=== PATIENT | female | born 2000 | race African-American/Black ===

== ENCOUNTER 2019-12-10 11:43 | Observation (INO) | payer OTHER, SELFPAY ==
--- NOTE | 2019-12-10 11:41 | PC.NURSE ---
pt to OB per policy
[2019-12-10 12:16] VITALS: BP 114/62; PULSE 92
[2019-12-10 12:30] LABS: Add Urine Microscopic? YES; Appearance Urine Cloudy (Clear); Bilirubin Urine 1+ (Negative); Blood Urine 1+ (Negative); Color Urine Amber (Yellow); Glucose Urine UA Negative (Negative); Ketones Urine Trace mg/dL (Negative); Leukocyte Esterase Ur 3+ LEU/UL (NEGATIVE); Mucus Urine Heavy /lpf; Nitrate Urine Negative (Negative); Protein Urine 1+ mg/dL (Negative); Squamous Epithelial Cell Urine Many /hpf (Few); WBC Urine 31-50 /hpf (0-3)
[2019-12-10 12:31] VITALS: BP 109/62; PULSE 90
[2019-12-10 12:37] LABS: Specific Grav Ur 1.031 (1.001-1.035)
[2019-12-10 12:46] VITALS: BP 113/67; PULSE 86
[2019-12-10 13:01] VITALS: BP 113/64; PULSE 81
--- NOTE | 2019-12-10 13:24 | OBADM ---
This patient, Zack Ennis, admitted to the OB room [facility] for observation. Patient/family oriented to hospital policies and general routines including ID bracelet, bed and alarms, visiting hours, pain management, procedures, bathroom and other care routines, personal items, smoking policy, room service/diet, and visiting hours. Patient/Family are encouraged to report perceived risks to care and to ask questions if they do not understand what they are told or what they should do.
--- NOTE | 2019-12-12 13:26 | PM.OBTRLD ---
OB - Triage/Final Diagnosis Visit Information Reason for evaluation: other (dysuria) Evaluation Laboratory results: Laboratory Tests 12/10/19 12:19 Urine Color Jesusita Urine Appearance Cloudy H Urine pH 6.0 Ur Specific [place] 1.031 Urine Protein 1+ H Urine Glucose (UA) Negative Urine Ketones Trace Ur Blood (Man) 1+ H Urine Nitrate Negative Urine Bilirubin 1+ H Urine Urobilinogen 4.0 H Ur Leukocyte Esterase 3+ H Urine RBC 6-10 H Urine WBC 31-50 H Ur Squamous Epith Cells Many H Urine Mucus Heavy H
== END 2019-12-10 13:06 | disposition home or self-care (01) ==
PROVIDERS: Admitting Provider Obstetrics & Gynecology; Visit Provider Obstetrics & Gynecology
DX: O99.89 Other specified diseases and conditions complicating pregnancy, childbirth and the puerperium (principal); R30.0 Dysuria; Z3A.22 22 weeks gestation of pregnancy
CPT/HCPCS: 81001; 87086; 87088; G0378; G0379

== ENCOUNTER 2019-12-27 08:44 | Emergency (ER) | payer OTHER, SELFPAY ==
[2019-12-27 08:50] VITALS: BP 146/97; PULSE 90; RESP 16; TEMP 36.6; O2SAT 100
--- NOTE | 2019-12-27 10:23 | ED.EYEPROB ---
HPI - Eye Problem General Chief complaint: Eye Problems Stated complaint: eye infection Time Seen by Provider: 12/27/19 09:00 Source: patient Mode of arrival: ambulatory Limitations: no limitations History of Present Illness HPI Narrative: Patient is a 19-year-old female who presents to emergency department for evaluation of right eye irritation patient notes last night she began to have irritation of the right eye removed her contact notes clear discharge with mild irritation with some light sensitivity denies any URI symptoms injury or trauma has not taken anything for her symptoms nor has she been seen for this complaint on arrival to emergency department is in the room resting comfortably afebrile nontoxic appearing no distress patient is currently denies any abdominal or pelvic complaints Related Data Allergies Allergy/AdvReac Type Severity Reaction Status Date / Time No Known Allergies Allergy Mild Verified 12/27/19 08:55 Review of Systems Review of Systems: Narrative: CONSTITUTIONAL: Denies fever, chills, or sweats. ENT: Denies rhinorrhea, congestion, sore throat, or otalgia. RESPIRATORY: Denies cough or dyspnea. GASTROINTESTINAL: Denies abdominal pain, nausea, vomiting SKIN: Denies rash or itching. MUSCULOSKELETAL: Denies joint pain, or myalgia. NEUROLOGIC: Denies headache Exam Narrative: Exam Narrative: GENERAL: Well-appearing, well-nourished, and in no acute distress. HEAD: Normocephalic, atraumatic. EYES: PERRLA and EOMI. patient with conjunctival injection negative fluorescein uptake. No foreign bodies noted ENT: Nares clear, no rhinorrhea or epistaxis. Mucous membranes moist. Oropharynx without tonsillar hypertrophy exudate or other lesions. NECK: Supple. No adenopathy or masses CHEST: Clear to auscultation. No respiratory distress. No wheezes rales or rhonchi HEART: Regular rate and rhythm. No murmur heard. EXTREMITIES: Normal range of motion. No edema. SKIN: Warm, dry, no rash. NEURO: No focal deficits. Alert and oriented x3. PSYCH: Normal mood and affect. Course Course Emergency Course: Patient in the room in no distress aware of case findings treatment plan and diagnosis agreeing to follow-up as directed or to return if symptoms worsen or concerns Vital Signs Vital signs: Vital Signs Temperature 97.8 F 12/27/19 08:50 Pulse Rate 90 12/27/19 08:50 Respiratory Rate 16 12/27/19 08:50 Blood Pressure 146/97 H 12/27/19 08:50 Pulse Oximetry 100 12/27/19 08:50 Temperature 97.8 F 12/27/19 08:50 Pulse Rate 90 12/27/19 08:50 Respiratory Rate 16 12/27/19 08:50 Blood Pressure 146/97 H 12/27/19 08:50 Pulse Oximetry 100 12/27/19 08:50 MDM - Eye Problem MDM Narrative Medical decision making narrative: Patient agreeing to follow-up with ophthalmology as directed and also provided with reasons to return Discharge Plan Discharge Clinical Impression: Conjunctivitis Patient Disposition: Home, Self-Care Condition: Stable Instructions: Antibiotic Form, Conjunctivitis (ED) Additional Instructions: Follow up with your primary care doctor in 5-7 days for re-evaluation. Go to ER for worsening pain, vision changes, nausea/vomiting, fever/chills, weakness, chest pain, shortness of breath, numbness/tingling, slurred speech, difficulty walking, change in mental status etc. or any other concerns. Follow-up with community fundraiser today to set up for reevaluation in 3 days Take any prescribed medications as directed. Use [id number] preservative-free tears every 2 hours for symptom relief Follow-up/Referrals: UNKNOWN,DOCTOR [Primary Care Provider] - Joyce Wynn [Outside] Joyce Ricks [Outside]
[2019-12-27] MEDS: TETRACAINE HCL 0.5% OPHTH SOLN 4 ML BTL 1 DROP EACH EYE (10:30)
[2019-12-27] MEDS: FLUORESCEIN SOD 1 MG/STRIP EACH EYE (10:30)
[2019-12-27] MEDS: DACRIOSE EYE IRRIGATION 118 ML BOTTLE 50 ML EACH EYE (10:30)
[2019-12-27 11:25] VITALS: BP 127/82; PULSE 68; RESP 16; O2SAT 99
== END 2019-12-27 11:26 | disposition home or self-care (01) ==
PROVIDERS: Emergency Provider Emergency Medicine
DX: H10.9 Unspecified conjunctivitis (principal)
CPT/HCPCS: 99283; A9270

== ENCOUNTER 2020-01-19 19:48 | Observation (INO) | payer OTHER, SELFPAY ==
[2020-01-19 20:05] VITALS: BP 131/84; PULSE 96
--- NOTE | 2020-01-21 20:22 | PM.OBTRLD ---
OB - Triage/Final Diagnosis Visit Information Reason for evaluation: threatened labor
== END 2020-01-19 20:45 | disposition home or self-care (01) ==
PROVIDERS: Admitting Provider Obstetrics & Gynecology; PCP Internal Medicine; Visit Provider Obstetrics & Gynecology
DX: O47.03 False labor before 37 completed weeks of gestation, third trimester (principal); Z3A.28 28 weeks gestation of pregnancy
CPT/HCPCS: G0378; G0379

== ENCOUNTER 2020-06-10 18:45 | Emergency (ER) | payer OTHER, SELFPAY ==
[2020-06-10 18:54] VITALS: BP 142/91; PULSE 112; RESP 18; TEMP 39.4; O2SAT 100
--- NOTE | 2020-06-10 19:35 | ED.FEVER ---
HPI - Fever General Chief Complaint: Fever Stated Complaint: fever, sore throat Time Seen by Provider: 06/10/20 19:10 Source: patient Mode of arrival: ambulatory Limitations: no limitations History of Present Illness HPI Narrative: This patient is 19 year old female who presents for evaluation of fever and sore throat. She states she woke from her nap today with a sore throat. She states it feels like she has strep throat again. Her last diagnosis of strep throat was 1 year ago. She denies any other symptoms . She denies cough, sob, nausea, vomiting, diarrhea or dizziness. She did not take any medication for her fever or pain . She denies sick contacts. MD elicited complaint: fever Related Data Home Medications Medication Instructions Recorded Confirmed ferrous sulfate 324 mg PO BID 06/10/20 labetalol 06/10/20 labetalol 06/10/20 Allergies Allergy/AdvReac Type Severity Reaction Status Date / Time No Known Allergies Allergy Mild Verified 06/10/20 19:11 Review of Systems Review of Systems: All systems reviewed & are unremarkable except as noted in HPI and below Constitutional: Constitutional: Denies fatigue and Reports fever(s) ENT: Denies nasal congestion and Reports sore throat Cardiovascular: Cardiovascular: Denies chest pain Respiratory: Respiratory: Denies cough and Denies dyspnea Gastrointestinal: Gastrointestinal: Denies abdominal pain, Denies diarrhea, Denies nausea and Denies vomiting Neurologic: Denies dizziness and Denies weakness PMFSH Past Medical History Medical History (Updated 06/11/20 @ 00:00 by Background Daemon) Anemia Hypertension Surgical History Surgical History (Updated 06/10/20 @ 19:36 by Sophia Quispe MD) History of ankle surgery Social History Social History (Updated 06/10/20 @ 19:36 by Sophia Quispe MD) Smoking status: Never smoker Gender identity (if verbalized by the patient): Female Exam Narrative: Exam Narrative: GENERAL: Well-appearing, well-nourished, and in no acute distress.obese HEAD: Normocephalic, atraumatic EYES: PERRLA and EOMI, conjunctiva clear without discharge EARS: TM's clear bilaterally without erythema or dullness NOSE: Nares clear, no rhinorrhea or epistaxis NECK: Supple, without lymphadenopathy or mass RESPIRATORY: No respiratory distress, Airway patent, Respirations non-labored, Clear to auscultation without rales, rhonchi or wheeze HEART: Regular rate and rhythm. No murmur heard. Normal peripheral pulses. ABDOMEN: Soft, nontender, nondistended, normal active bowel sounds. No masses. No rebound or guarding, No organomegaly. EXTREMITIES: No edema, normal strength with full range of motion. SKIN: Warm, dry, normal color without rash NEURO: Alert and oriented x3. CN 2-12 grossly intact. No focal deficits. PSYCH: Normal mood and affect. HENMT: Throat: uvula midline and posterior oropharynx abnormal erythema Neck: Neck: no lymphadenopathy Course Reevaluation(s) Reevaluation #1: Patient was found to have strep pharyngitis. She opted for Bicillin treatment. Date: 06/10/20 Time: 20:50 Vital Signs Vital signs: Vital Signs Temperature 102.9 F H 06/10/20 18:54 Pulse Rate 112 H 06/10/20 18:54 Respiratory Rate 18 06/10/20 18:54 Blood Pressure 142/91 H 06/10/20 18:54 Pulse Oximetry 100 06/10/20 18:54 Temperature 97.5 F L 06/10/20 21:15 Pulse Rate 101 H 06/10/20 21:15 Respiratory Rate 22 H 06/10/20 21:15 Blood Pressure 144/87 H 06/10/20 21:15 Pulse Oximetry 101 H 06/10/20 21:15 MDM - Fever Lab Data Labs: Lab Results 06/10/20 Range/Units 19:45 SARS-CoV-2 RNA (RT-PCR) Pending Strep Screen Positive Group A Strep *(Reference Range: Negative)* Discharge Plan Discharge Clinical Impression: Acute streptococcal pharyngitis Patient Disposition: Home, Self-Care Condition: Stable Instructions: Antibiotic Form,
[2020-06-10] MEDS: ACETAMINOPHEN 500 MG TABLET 1000 MG PO (19:43)
[2020-06-10 21:15] VITALS: BP 144/87; PULSE 101; RESP 22; TEMP 36.4; O2SAT 101
[2020-06-11 14:19] LABS: SARS-CoV-2 RNA PCR Negative
== END 2020-06-10 21:18 | disposition home or self-care (01) ==
PROVIDERS: Emergency Provider General Practice
DX: J02.0 Streptococcal pharyngitis (principal); Z20.828 Contact with and (suspected) exposure to other viral communicable diseases
CPT/HCPCS: 87635; 87880; 96372; 99283; A9270; C9803; J0558; U0003